=== PATIENT | male | born 1985 | race African-American/Black ===

== ENCOUNTER 2019-06-18 12:24 | Inpatient (IN) | payer OTHER ==
[2019-06-18 13:10] VITALS: BMI 23.1
--- NOTE | 2019-06-18 15:26 | HP ---
COWS - Scale Resting Pulse: 1= [place] 81-100 Sweatin= No chills or Flushing Restless Observation: 3= Extraneous Movement Pupil Size: 1= Pupils >than Normal Bone or Joint Aches: 1= Mild Discomfort Runny Nose/ Eye Tearin= Runny Nose/Eyes GI Upset > 30mins: 1= Stomach Cramp Tremor Observation: 1= Tremor [place], Not Seen Yawning Observation: 0= None Anxiety or Irritability: 2=Irritable/Anxious Goose Flesh Skin: 0=Smooth Skin COWS Score: 12 CIWA Score - Admission Criteria OASAS Guidelines: Admission for Medically Managed Detox: Requires at least one of the followin. CIWA greater than 12 2. Seizures within the past 24 hours 3. Delirium tremens within the past 24 hours 4. Hallucinations within the past 24 hours 5. Acute intervention needed for co occurring medical disorder 6. Acute intervention needed for co occurring psychiatric disorder 7. Severe withdrawal that cannot be handled at a lower level of care (continued vomiting, continued diarrhea, abnormal vital signs) requiring intravenous medication and/or fluids 8. Admission ROS [facility] Chief Complaint: PT OVERDOSED THIS AM WAS SENT FROM [facility] Allergies/Adverse Reactions: Allergies Allergy/AdvReac Type Severity Reaction Status Date / Time wool Allergy Severe Hives Verified 06/18/19 13:03 History of Present Illness: USING HEROIN FOR SEVERAL MONTHS 4 BAGS DAILY HAS HO COCAINE USE PROBLEMATIC IN PAST - Ebola screening Have you traveled outside of the country in the last 21 days: No Have you had contact with anyone from an Ebola affected area: No Have you been sick,other than usual withdrawal symptoms: No Do you have a fever: No - Review of Systems Constitutional: Changes in sleep EENT: reports: Nose Congestion Respiratory: reports: No Symptoms reported Cardiac: reports: No Symptoms Reported GI: reports: Abdominal cramping : reports: No Symptoms Reported Musculoskeletal: reports: Muscle Pain Integumentary: reports: No Symptoms Reported Neuro: reports: No Symptoms reported Endocrine: reports: No Symptoms Reported Hematology: reports: No Symptoms Reported Psychiatric: reports: Anxious Patient History - Patient Medical History Hx Anemia: No Hx Asthma: No Hx Chronic Obstructive Pulmonary Disease (COPD): No Hx Cancer: No Hx Cardiac Disorders: No Hx Congestive Heart Failure: No Hx Hypertension: No Hx Hypercholesterolemia: No Hx Pacemaker: No HX Cerebrovascular Accident: No Hx Seizures: No Hx Dementia: No Hx Diabetes: No Hx Gastrointestinal Disorders: No Hx Liver Disease: No Hx Genitourinary Disorders: No Hx Sexually Transmitted Disorders: No Hx Renal Disease (ESRD): No Hx Thyroid Disease: No Hx Human Immunodeficiency Virus (HIV): No Hx Hepatitis C: No Hx Depression: Yes Hx Suicide Attempt: No Hx Bipolar Disorder: No Hx Schizophrenia: No - Patient Surgical History Past Surgical History: No - PPD History Previous Implant?: Yes Documented Results: Negative w/o proof - Smoking Cessation Smoking history: Current every day smoker Have you smoked in the past 12 months: Yes Aproximately how many cigarettes per day: 5 Hx Chewing Tobacco Use: No Initiated information on smoking cessation: Yes 'Breaking Loose' booklet given: 06/18/19 - Substances abused Heroin Substance route: Inhalation Frequency: Daily Amount used: 1/2 bundle Age of first use: 33 Date of last use: 06/18/19 Cocaine Substance route: Inhalation Frequency: 1-2 times per week Amount used: $50 Age of first use: 23 Date of last use: 06/17/19 Family Disease History - Family Disease History Family History: Denies Admission Physical Exam [facility] - Vital Signs Vital Signs: Vital Signs - 24 hr 06/18/19 13:04 Temperature 96.1 F L Pulse Rate 103 H Respiratory 16 Rate Blood Pressure 112/82 - Physical General Appearance: Yes: Anxious HEENTM: Yes: Nasal Congestion Respiratory: Yes: Chest Non-Tender, Lungs Clear, Normal Breath Sounds Neck: Yes: Within Normal Limits Breast: Yes: Breast Exam Deferred Cardiology: Yes: Within Normal Limits Abdominal: Yes: Within Normal Limits, Normal Bowel Sounds Genitourinary: Yes: Within Normal Limits Back: Yes: Within Normal Limits Musculoskeletal: Yes: full range of Motion, Gait Steady Extremities: Yes: Within Normal Limits, Normal Capillary Refill, Normal Inspection Neurological: Yes: household worker II-XII NML intact, Fully Oriented, Alert, Motor Strength 5/5, Normal Mood/Affect Integumentary: Yes: Within Normal Limits, Other (TATTOOS) - Diagnostic (1) Opiate dependence Current Visit: Yes Status: Acute (2) Opiate withdrawal Current Visit: Yes Status: Acute (3) Cocaine dependence Current Visit: Yes Status: Acute Inpatient Rehab Admission - Rehab Decision to Admit Inpatient rehab admission?: No
[2019-06-18] MEDS ORDERED: cloNIDine HCL 0.1 MG TABLET PO PRN (15:38)
[2019-06-18] MEDS ORDERED: MAGNESIUM HYDROX 2400MG/30ML ORAL SUSPENSION 30 ML CUP PO PRN (16:32)
[2019-06-18] MEDS ORDERED: MENTHOL/PHENOL 1 EACH UD MM PRN (16:32)
[2019-06-18] MEDS ORDERED: MELATONIN 5 MG TABLETS PO PRN (16:32)
[2019-06-18] MEDS ORDERED: MAGNESIUM CITRATE 300 ML BOTTLE PO PRN (16:32)
[2019-06-18] MEDS ORDERED: IBUPROFEN 400 MG TABLET (FP) PO PRN (16:32)
[2019-06-18] MEDS ORDERED: BISMUTH SUBSALICYLATE 524 MG/30 ML UD PO PRN (16:32)
[2019-06-18] MEDS ORDERED: ACETAMINOPHEN 325 MG TABLET (FP) PO PRN ×2 (16:32)
[2019-06-18] MEDS ORDERED: NICOTINE POLACRILEX 2 MG GUM BUC PRN (16:32)
[2019-06-18] MEDS ORDERED: MAG HYDROX/AL HYDROX/SIMETH 30 ML UNIT-DOSE CUP PO PRN (16:32)
[2019-06-18] MEDS ORDERED: hydrOXYzine PAMOATE 25 MG CAPSULE (FP) PO PRN (16:32)
[2019-06-18] MEDS ORDERED: METHOCARBAMOL 500 MG TABLET PO PRN (16:32)
[2019-06-18] MEDS ORDERED: METHADONE HCL 5 MG TABLET (FOR DETOX USE ONLY) PO ONE (18:00)
[2019-06-18] MEDS: NICOTINE 14 MG/24 HOURS TOPICAL PATCH TD SCH (18:10)
[2019-06-18] MEDS: THIAMINE HCL 100 MG TABLET (FP) PO SCH (22:06)
[2019-06-19] MEDS ORDERED: PRENATAL VITAMINS W/ FOLIC ACID TABLET (FP) PO SCH (10:00)
[2019-06-19] MEDS ORDERED: METHADONE HCL 10 MG TABLET (FOR DETOX USE ONLY) PO ONE (10:00)
[2019-06-19] MEDS: NICOTINE 14 MG/24 HOURS TOPICAL PATCH TD SCH (10:28)
[2019-06-19 11:48] LABS: HEMATOCRIT 44.6 % (35.4-49); MCH 30.9 pg (25.7-33.7); MCHC 33.5 g/dl (32.0-35.9); MEAN CELL VOLUME 92.2 fl (80-96); MEAN PLT VOLUME 9.2 fl (7.5-11.1); PLATELET COUNT 228 K/MM3 (134-434); RBC 4.84 M/mm3 (4.00-5.60); WHITE BLOOD COUNT 6.1 K/mm3 (4.0-10.0)
[2019-06-19 12:28] LABS: ALBUMIN 3.6 g/dl (3.4-5.0); BILIRUBIN,TOTAL 0.3 mg/dL (0.2-1); BLOOD UREA NITROGEN 10.5 mg/dL (7-18); CREATININE 1.2 mg/dL (0.55-1.3); POTASSIUM 3.8 mmol/L (3.5-5.1); TOT PROT 6.6 g/dl (6.4-8.2)
--- NOTE | 2019-06-19 13:31 | PN ---
S COWS - Scale Resting Pulse: 1= [place] 81-100 Sweatin= Chills/Flushing Restless Observation: 1= Difficult to Sit Still Pupil Size: 1= Pupils >than Normal Bone or Joint Aches: 1= Mild Discomfort Runny Nose/ Eye Tearin= Runny Nose/Eyes GI Upset > 30mins: 1= Stomach Cramp Tremor Observation of Outstretched Hands: 1= Tremor [place], Not Seen Yawning Observation: 1= 1-2x During Session Anxiety or Irritability: 2=Irritable/Anxious Goose Flesh Skin: 0=Smooth Skin COWS Score: 12 S Progress Note (SOAP) Subjective: alert,irritable,anxious,interrupted sleep,tremor,pain in the body and back Objective: 06/19/19 13:29 Vital Signs Temperature 96.7 F L 06/19/19 13:08 Pulse Rate 84 06/19/19 13:08 Respiratory Rate 18 06/19/19 13:08 Blood Pressure 124/87 06/19/19 13:08 O2 Sat by Pulse Oximetry (%) Laboratory Last Values WBC 6.1 K/mm3 (4.0-10.0) 06/19/19 07:30 RBC 4.84 M/mm3 (4.00-5.60) 06/19/19 07:30 Hgb 15.0 GM/dL (11.7-16.9) 06/19/19 07:30 Hct 44.6 % (35.4-49) 06/19/19 07:30 MCV 92.2 fl (80-96) 06/19/19 07:30 MCH 30.9 pg (25.7-33.7) 06/19/19 07:30 MCHC 33.5 g/dl (32.0-35.9) 06/19/19 07:30 RDW 13.0 % (11.9-15.9) 06/19/19 07:30 Plt Count 228 K/MM3 (134-434) 06/19/19 07:30 MPV 9.2 fl (7.5-11.1) 06/19/19 07:30 Sodium 141 mmol/L (136-145) 06/19/19 07:30 Potassium 3.8 mmol/L (3.5-5.1) 06/19/19 07:30 Chloride 100 mmol/L (98-107) 06/19/19 07:30 Carbon Dioxide 33 mmol/L (21-32) H 06/19/19 07:30 Anion Gap 8 MMOL/L (8-16) 06/19/19 07:30 BUN 10.5 mg/dL (7-18) 06/19/19 07:30 Creatinine 1.2 mg/dL (0.55-1.3) 06/19/19 07:30 Est GFR (CKD-EPI)AfAm 91.53 06/19/19 07:30 Est GFR (CKD-EPI)NonAf 78.97 06/19/19 07:30 Random Glucose 83 mg/dL (74-106) 06/19/19 07:30 Calcium 9.0 mg/dL (8.5-10.1) 06/19/19 07:30 Total Bilirubin 0.3 mg/dL (0.2-1) 06/19/19 07:30 AST 16 U/L (15-37) 06/19/19 07:30 ALT 23 U/L (13-61) 06/19/19 07:30 Alkaline Phosphatase 64 U/L (45-117) 06/19/19 07:30 Total Protein 6.6 g/dl (6.4-8.2) 06/19/19 07:30 Albumin 3.6 g/dl (3.4-5.0) 06/19/19 07:30 RPR Titer Nonreactive (NONREACTIVE) 06/19/19 07:30 Assessment: 06/19/19 13:30 withdrawal symptom Plan: continue detox methadone regimen,discharge in am
[2019-06-19] MEDS ORDERED: diphenhydrAMINE HCL 25 MG CAPSULE (FP) PO PRN (16:46)
--- NOTE | 2019-06-19 16:48 | PN ---
S Progress Note Note: c/o dina UE itching since this morning , reports allergy to wool. Denies dysphagia , shortness of breath O : ambulating freely , speech intact , AAO X 3 mno distress noted . P : Benadryl p.o. prn . d/w pt , agreeable w/ POC .
[2019-06-19] MEDS: THIAMINE HCL 100 MG TABLET (FP) PO SCH (21:29)
[2019-06-20] MEDS ORDERED: METHADONE HCL 5 MG TABLET (FOR DETOX USE ONLY) PO ONE (06:00)
[2019-06-20 06:21] VITALS: BP 117/80; PULSE 81; TEMP 98.6
--- NOTE | 2019-06-20 13:26 | DS ---
[facility] Detox Discharge Summary Admission Date: 06/18/19 Discharge Date: 06/20/19 - History Present History: Opioid Dependence Additional Comments: 33 years old male first detox admission from [facility] was admitted on 06/18/19 for opiate withdrawal sx management did well with methadone detox regimen no complication through out the detox stay patient is alert oriented x 3 speech clearly denies dizziness no muscles aches no chest pain no shortness of breath no wheezing abdomen soft none tender - Physical Exam Results Vital Signs: Vital Signs Temperature 98.6 F 06/20/19 06:20 Pulse Rate 81 06/20/19 06:20 Respiratory Rate 18 06/20/19 06:20 Blood Pressure 117/80 06/20/19 06:20 O2 Sat by Pulse Oximetry (%) Pertinent Admission Physical Exam Findings: opiate withdrawal sx Laboratory Last Values WBC 6.1 K/mm3 (4.0-10.0) 06/19/19 07:30 RBC 4.84 M/mm3 (4.00-5.60) 06/19/19 07:30 Hgb 15.0 GM/dL (11.7-16.9) 06/19/19 07:30 Hct 44.6 % (35.4-49) 06/19/19 07:30 MCV 92.2 fl (80-96) 06/19/19 07:30 MCH 30.9 pg (25.7-33.7) 06/19/19 07:30 MCHC 33.5 g/dl (32.0-35.9) 06/19/19 07:30 RDW 13.0 % (11.9-15.9) 06/19/19 07:30 Plt Count 228 K/MM3 (134-434) 06/19/19 07:30 MPV 9.2 fl (7.5-11.1) 06/19/19 07:30 Sodium 141 mmol/L (136-145) 06/19/19 07:30 Potassium 3.8 mmol/L (3.5-5.1) 06/19/19 07:30 Chloride 100 mmol/L (98-107) 06/19/19 07:30 Carbon Dioxide 33 mmol/L (21-32) H 06/19/19 07:30 Anion Gap 8 MMOL/L (8-16) 06/19/19 07:30 BUN 10.5 mg/dL (7-18) 06/19/19 07:30 Creatinine 1.2 mg/dL (0.55-1.3) 06/19/19 07:30 Est GFR (CKD-EPI)AfAm 91.53 06/19/19 07:30 Est GFR (CKD-EPI)NonAf 78.97 06/19/19 07:30 Random Glucose 83 mg/dL (74-106) 06/19/19 07:30 Calcium 9.0 mg/dL (8.5-10.1) 06/19/19 07:30 Total Bilirubin 0.3 mg/dL (0.2-1) 06/19/19 07:30 AST 16 U/L (15-37) 06/19/19 07:30 ALT 23 U/L (13-61) 06/19/19 07:30 Alkaline Phosphatase 64 U/L (45-117) 06/19/19 07:30 Total Protein 6.6 g/dl (6.4-8.2) 06/19/19 07:30 Albumin 3.6 g/dl (3.4-5.0) 06/19/19 07:30 RPR Titer Nonreactive (NONREACTIVE) 06/19/19 07:30 lab noted - Treatment Hospital Course: Detox Protocol Followed, Detoxed Safely, Responded well, Discharged Condition Good, Rehab Referral Accepted Patient has Accepted a Rehab Referral to: [facility] - Medication Discharge Medications: Ambulatory Orders NK [No Known Home Medication] 06/18/19 - Diagnosis (1) Uncomplicated opioid dependence Status: Acute - AMA Did Patient Leave Against Medical Advice: No COWS (PN) - Opiate Withdrawal Resting Pulse: 1= [place] 81-100 Sweatin= No chills or Flushing Restless Observation: 0= Sits Still Pupil Size: 0= Normal to Room Light Bone or Joint Aches: 1= Mild Discomfort Runny Nose/ Eye Tearin= Nasal Congestion GI Upset > 30mins: 1= Stomach Cramp Tremor Observation of Outstretched Hands: 1= Tremor [place], Not Seen Yawning Observation: 1= 1-2x During Session Anxiety or Irritability: 1=Feels Anxious/Irritable Goose Flesh Skin: 0=Smooth Skin COWS Score: 7
== END 2019-06-20 09:26 | disposition home or self-care (01) | DRG 773 ==
LOC: YASAS 12:24 → Y3N 17:08
PROVIDERS: ADMIT Surgery; ATTEND Surgery
PROC: HZ2ZZZZ Detoxification Services for Substance Abuse Treatment (ICD-10-PCS; principal; 2019-06-18)
DX: F11.23 Opioid dependence with withdrawal (principal); F14.20 Cocaine dependence, uncomplicated; L29.9 Pruritus, unspecified
CPT/HCPCS: 36415; 80053; 85027; 86593